=== PATIENT | female | born 1995 | race African-American/Black ===

== ENCOUNTER 2019-01-05 14:18 | Outpatient (CLI) | payer OTHER ==
[~2019-01-05 14:18] MED LIST: DULCOLAX5 MG PO; ZANTAC300 MG PO
== END 2019-01-05 15:00 | disposition home or self-care (01) ==
LOC: LAB 14:18
DX: R42 Dizziness and giddiness (principal); R51 Headache

== ENCOUNTER → 2021-01-16 10:16 | Outpatient (CLI) | payer OTHER | END | disposition home or self-care (01) | LOC: LAB 10:16 | PROVIDERS: ATTEND Internal Medicine | DX: Z12.31 Encounter for screening mammogram for malignant neoplasm of breast (principal); Z13.220 Encounter for screening for lipoid disorders; Z13.29 Encounter for screening for other suspected endocrine disorder; E55.9 Vitamin D deficiency, unspecified ==